=== PATIENT | female | born 1990 | race Caucasian/White ===

== ENCOUNTER 2018-03-14 01:26 | Emergency (ER) | payer MEDICAID ==
[~2018-03-14] VITALS: Ht 160 cm; Wt 129.3 kg
[2018-03-14 02:05] LABS: Basophils # (auto) 0.1 uL; Basophils % (auto) 0.7 % (0.0-2.0); Eosinophils # (auto) 0.1 uL; Eosinophils % (auto) 0.6 % (0.0-7.0); Hematocrit 48.3 % (36.0-46.0); Hemoglobin 15.9 g/dL (12.2-16.2); Lymphocytes # (auto) 1.6 uL; Lymphocytes % (auto) 16.6 % (10.0-50.0); Mean Corpuscular Hemoglobin 30.2 pg (28.0-32.0); Mean Corpuscular Volume 91.5 fL (80.0-100.0); Monocytes # (auto) 0.9 uL; Monocytes % (auto) 9.3 % (0.0-12.0); Neutrophils # (auto) 7.2 uL; Neutrophils % (auto) 72.8 % (37.0-80.0); Nucleated Red Blood Cells % 0.1 %; Platelet Count (auto) 167 10^3/uL (140-450); Red Blood Cells 5.28 10^6/uL (4.0-5.20); Red Cell Distribution Width 16.5 % (11.8-14.3); White Blood Cell 9.8 10^3/uL (4.4-10.8)
[2018-03-14 02:22] LABS: INR 1.05 (0.9-1.15); Partial Thromboplastin Time 28.7 sec (22.64-33.71); Prothrombin Time 11.4 sec (9.37-12.3)
[2018-03-14 02:25] LABS: Alanine Aminotransferase 37 U/L (13-56); Albumin 3.8 g/dL (3.4-5.0); Amylase 27 U/L (25-115); Anion Gap 15 (5-15); Aspartate Aminotransferase 22 U/L (15-37); BUN/Creatinine Ratio 9.5; Blood Urea Nitrogen 10 mg/dL (7-18); Calcium 9.2 mg/dL (8.5-10.1); Carbon Dioxide 16 mmol/L (21-32); Chloride 108 mmol/L (98-107); GFR African American 80 mL/min; GFR Non-African American 66 mL/min; Glucose 87 mg/dL (74-106); Lipase 60 U/L (73-393); Sodium 139 mmol/L (136-145)
[2018-03-14 02:30] LABS: Alkaline Phosphatase 99 U/L (45-117); Bilirubin, Total 1.2 mg/dL (0.2-1.0); Total Protein 7.3 g/dL (6.4-8.2)
[2018-03-14] MEDS ORDERED: NALBUPHINE HCL 10 MG/1ml INJECTION IV ONE (04:45)
[2018-03-14] MEDS ORDERED: KETOROLAC TROMETH 30 MG/ML 1ML VIAL IV ONE (04:45)
[2018-03-14] MEDS ORDERED: ONDANSETRON HCL 4 MG/2 ML VIAL IV ONE (04:45)
[2018-03-14] MEDS ORDERED: SODIUM CHLORIDE 0.9% 1,000 ML IV ONE (04:45)
[2018-03-14 05:26] LABS: Urine Bacteria NONE SEEN /hpf (None Seen); Urine Blood Negative /uL (Negative); Urine Mucus FEW (None Seen); Urine Specific Gravity 1.033 (1.001-1.035); Urine WBC 4 /hpf (0 - 5)
[2018-03-14 05:31] VITALS: BP 115/104
== END 2018-03-14 06:44 | disposition home or self-care (01) ==
LOC: EDBD 01:26 → ER 01:26
DX: N20.1 Calculus of ureter (principal); E86.0 Dehydration
CPT/HCPCS: 36415; 74176; 80053; 81001; 81025; 82150; 83690; 84484; 85025; 85610; 85730; 96361; 96374; 96375; 99285; J1885; J2300; J2405

== ENCOUNTER 2024-10-04 11:05 | Inpatient (IN) | payer BC, MEDICAID, OTHER ==
[~2024-10-04] VITALS: Ht 160 cm; Wt 140.2 kg
[2024-10-04 11:47] LABS: Basophils # (auto) 0 10 ^3/uL (0-0.2); Basophils % (auto) 0.4 % (0.0-2.0); Eosinophils # (auto) 0.1 10 ^3/uL (0-0.8); Monocytes # (auto) 0.7 10 ^3/uL (0-1.3); Monocytes % (auto) 7.3 % (0.0-12.0); Red Cell Distribution Width 14.7 % (11.8-14.3); White Blood Cell 10.1 10^3/uL (4.4-10.8)
[2024-10-04 11:48] LABS: Hemoglobin 12.8 g/dL (12.2-16.2); Lymphocytes # (auto) 2.4 10 ^3/uL (0.4-5.4); Lymphocytes % (auto) 23.4 % (10.0-50.0); Mean Corpuscular Hemoglobin 26.2 pg (28.0-32.0); Mean Corpuscular Hgb Conc. 32.8 g/dL (32.0-36.0); Mean Corpuscular Volume 79.6 fL (80.0-100.0); Neutrophils # (auto) 6.8 10 ^3/uL (1.6-8.6); Neutrophils % (auto) 67.9 % (37.0-80.0); Platelet Count (auto) 282 10^3/uL (140-450)
[2024-10-04 11:52] LABS: Potassium 4.6 mmol/L (3.5-5.1); Sodium 143 mmol/L (136-145)
[2024-10-04 11:53] LABS: Anion Gap 7 (5-15); Calcium 9.7 mg/dL (8.7-10.4); Carbon Dioxide 25 mmol/L (20-31)
[2024-10-04 11:58] LABS: BUN/Creatinine Ratio 10.1 (10.0-20.0); Blood Urea Nitrogen 11 mg/dL (9-23); Glucose 103 mg/dL (74-106)
[2024-10-04 11:59] LABS: Chloride 111 mmol/L (98-107)
--- NOTE | 2024-10-04 12:04 | ED.PDOC ---
HPI Comments A 33 year old female presents to the ED with a chief complaint of chest pain onset 1 week ago. Patient began experiencing chest pain describes it as a tightness sensation about 1 week ago, noticed it worsened last night. She is also experiencing shortness of breath that causes cough, LT upper back pain, dizziness. She has a past medical history of kidney stones and gallstones and denies nausea, vomiting, abdominal pain, headache. No other symptoms or modifying factors present at this time. Chief Complaint: Chest Pain Time Seen by MD: 11:18 Primary Care Provider: AVINASH Antonio Notes: Medications, Allergies Allergies: Coded Allergies: NO KNOWN ALLERGIES (Unverified , 03/14/18) Information Source: Patient Mode of Arrival: Ambulatory Severity: Moderate Timing: Weeks Duration: Since onset Prehospital treatment: None Location: Chest (L) Radiation: Back Quality: Tightness Cardiac Risk Factors: Family History PE Risk Factors: None History of: None Associated Signs and Symptoms: SOB, Back Pain Past Medical History PAST MEDICAL HISTORY: Gallstones, Kidney Stones Past Medical History (Other): Morbid obesity Surgical History: Tubal Ligation Surgical History (Other): gastric bypass [employer] History: Ectopic Family History Family History: No family hx of HTN, Family hx of heart mary Family History (Other): Father in his early 50s from [place] Social History Smoker: Cigarettes, Other Alcohol: Denies ETOH Use Drugs: Denies Drug Use Lives In: Home Constitutional: denies: chills, diaphoresis, fatigue, fever, malaise, sweats, weakness, others EENTM: denies: blurred vision, double vision, ear bleeding, ear discharge, ear drainage, ear pain, ear ringing, eye pain, eye redness, hearing loss, mouth pain, mouth swelling, nasal discharge, nose bleeding, nose congestion, nose pain, photophobia, tearing, throat pain, throat swelling, voice changes, others Respiratory: reports: cough, shortness of breath; denies: hemoptysis, orthopnea, SOB at rest, SOB with excertion, stridor, wheezing, others Cardiovascular: reports: chest pain (tightness); denies: dizzy spells, diaphoresis, Dyspnea on exertion, edema, irregular heart beat, left arm pain, lightheadedness, palpitations, PND, syncope, others Gastrointestinal: denies: abdomen distended, abdominal pain, blood streaked bowels, constipated, diarrhea, dysphagia, difficulty swallowing, hematemesis, melena, nausea, poor appetite, poor fluid intake, rectal bleeding, rectal pain, vomiting, others Genitourinary: denies: abnormal vagina bleeding, burning, dyspareunia, dysuria, flank pain, frequency, hematuria, incontinence, pain, , vagina discharge, urgency, others Neurological: reports: dizziness; denies: fainting, headache, left sided numbness, left sided weakness, numbness, paresthesia, pre-existing deficit, right sided numbness, right sided weakness, seizure, speech problems, tingling, tremors, weakness, others Musculoskeletal: reports: back pain; denies: gout, joint pain, joint swelling, muscle pain, muscle stiffness, neck pain, others Integumetry: denies: bruises, change in color, change in hair/nails, dryness, laceration, lesions, lumps, rash, wounds, others Allergic/Immunocompromised: denies: Difficulty Healing, Frequent Infections, Hives, Itching, others Hematologic/Lymphatic: denies: anemia, blood clots, easy bleeding, easy bruising, swollen glands, others Endocrine: denies: excessive hunger, excessive sweating, excessive thirst, excessive urination, flushing, intolerance to cold, intolerance to heat, unexplained weight gain, unexplained weight loss, others Psychiatric: denies: anxiety, bipolar disorder, depression, hopeless, panic disorder, schizophrenia, sleepless, suicidal, others All Other Systems: Reviewed and Negative Physical Exam General Appearance: No Apparent Distress, Obese HEENT: Other (Pupils symmetric, moist mucous membranes, no facial asymmetry) Neck: Full Range of Motion, Normal Inspection Respiratory: Decreased Breath Sounds, No Accessory Muscle Use, No Respiratory Distress Cardiovascular: No Edema, No JVD, Regular Rate/Rhythm Breast Exam: Deferred Gastrointestinal: Non Tender, Soft Genitalia: Deferred Pelvic: Deferred Rectal: Deferred Extremities: Normal inspection, Normal range of motion, Non-tender, No pedal edema Neurologic: Alert (Oriented x4), Normal Affect, Normal Mood, Other (Ambulatory without difficulty. No gross focal deficit.) Cerebellar Function: NOT DONE Reflexes: NOT DONE Skin: Dry, Normal Color, Rash Lymphatic: NOT DONE EKG EKG : Comments Sinus rhythm, rate 84, normal ME and QRS intervals, QTC 457, normal axis, normal QRS, nonspecific T changes. Was a procedure done? Was a procedure done?: No CP Differential Dx Differential Diagnosis: Angina, Anxiety / Panic Attack, Heart Failure, [place], Pulmonary Embolus Differential Diagnosis: CHF Differential Diagnosis: Chest Wall Pain, Esophageal reflux/spasm, Gastritis, Pericarditis, Pneumonia X-Ray, Labs, Meds, VS Vital Signs Date Time Temp Pulse Resp B/P (MAP) Pulse Ox O2 Delivery O2 Flow Rate FiO2 10/04/24 12:52 136/59 10/04/24 12:40 64 12 98 Room Air* 0 21 10/04/24 12:36 98.5 64 11 136/59 (84) 98 98.5 10/04/24 11:14 98.5 72 14 132/69 (90) 99 10/04/24 11:14 84 Lab Test 10/04/24 13:32 10/04/24 11:20 Range/Units Troponin I High Sensitivity < 3 L < 3 L </=34 ng/L White Blood Count 10.1 4.4-10.8 10^3/uL Red Blood Count 4.90 4.0-5.20 10^6/uL Hemoglobin 12.8 12.2-16.2 g/dL Hematocrit 39.0 36.0-46.0 % Mean Corpuscular Volume 79.6 L 80.0-100.0 fL Mean Corpuscular Hemoglobin 26.2 L 28.0-32.0 pg Mean Corpuscular Hemoglobin Concent 32.8 32.0-36.0 g/dL Red Cell Distribution Width 14.7 H 11.8-14.3 % Platelet Count 282 140-450 10^3/uL Mean Platelet Volume 8.7 6.9-10.8 fL Neutrophils (%) (Auto) 67.9 37.0-80.0 % Lymphocytes (%) (Auto) 23.4 10.0-50.0 % Monocytes (%) (Auto) 7.3 0.0-12.0 % Eosinophils (%) (Auto) 1.0 0.0-7.0 % Basophils (%) (Auto) 0.4 0.0-2.0 % Neutrophils # (Auto) 6.8 1.6-8.6 10 ^3/uL Lymphocytes # (Auto) 2.4 0.4-5.4 10 ^3/uL Monocytes # (Auto) 0.7 0-1.3 10 ^3/uL Eosinophils # (Auto) 0.1 0-0.8 10 ^3/uL Basophils # (Auto) 0 0-0.2 10 ^3/uL Nucleated Red Blood Cells 0.0 % Sodium Level 143 136-145 mmol/L Potassium Level 4.6 3.5-5.1 mmol/L Chloride Level 111 H 98-107 mmol/L Carbon Dioxide Level 25 20-31 mmol/L Anion Gap 7 5-15 Blood Urea Nitrogen 11 9-23 mg/dL Creatinine 1.09 H 0.550-1.02 mg/dL Glomerular Filtration Rate Calc 68 >90 mL/min BUN/Creatinine Ratio 10.1 10.0-20.0 Serum Glucose 103 74-106 mg/dL Calcium Level 9.7 8.7-10.4 mg/dL Magnesium Level 2.2 1.6-2.6 mg/dL B-Type Natriuretic Peptide 409.66 0-100 pg/mL Beta HCG, Quantitative 1.5 1.5-4.2 mIU/mL Current Medications Medications (Trade) Dose Ordered Sig/Iain Route Start Time Stop Time Status Last Admin Aspirin 325 mg ONCE ONCE PO 10/04/24 11:30 10/04/24 11:32 DC 10/04/24 12:52 Nitroglycerin (Nitro-Bid) 1 pkg ONCE ONCE TD 10/04/24 11:30 10/04/24 11:32 DC 10/04/24 12:52 Magnesium Sulfate/ Dextrose 100 ml @ 100 mls/hr Q1H IV 10/04/24 12:45 10/04/24 14:44 DC 10/04/24 14:50 PROCEDURE(s): CXRP - CHEST PORTABLE REASON: cp ORDER NUMBER(s): [id number], ACCESSION NUMBER(s): [id number] CHEST RADIOGRAPH Indication: cp Technique: Single frontal view of the chest was obtained COMPARISON: None FINDINGS: Lines and Tubes: None Lungs: Clear Pleura: No effusion. No pneumothorax. Cardiomediastinal contours: Unremarkable Bones: Unremarkable IMPRESSION: 1. No acute disease. X-Ray, Labs, Meds, VS Comment 33-year-old female with history of no report morbid obesity, tobacco use, and family history of [place] complaining of chest pain Vitals unremarkable Exam unremarkable Rhythm strip independently interpreted by me: Sinus rhythm, rate 84, no ectopy. Chest x-ray acute disease CBC unremarkable, basic metabolic panel remarkable for creatinine 1.09, hCG negative, BNP 409.66, troponin negative Following was ordered for the patient: Aspirin 325 mg p.o., Nitro-Bid 1/2 inch to chest wall During the patient stay, she was noted to be bradycardic down to the 30s, occasionally showing runs of 3 or 4 PVCs Patient received magnesium rider 2 g IV On re-evaluation, patient was resting comfortably with stable vitals. Plan is to admit the patient for Cardiology evaluation. Time of 1ST Reevaluation: 11:48 Reevaluation 1ST: Unchanged Patient Education/Counseling: Diagnosis, Treatment, Prognosis Family Education/Counseling: No Family Present Additional Information HI Data VOL/Complexity Ordered tests: LAB, XY, EKG, PHA reviewed results: CBC, PTPTT, UA, TROP, TROP, TROP, BMP, BETA HCG, BNP, MAG Interpreted results: XY, EKG Discuss tx/ results: patient, medical personnel Departure 1 Departure Time of Disposition: 12:50 Impression: Primary Impression: Acute chest pain Additional Impressions: Symptomatic bradycardia Arrhythmia, ventricular Disposition: ADMITTED INPATIENT Admit to: [facility] Condition: Guarded Critical Care Note Critical Care Time?: Yes (45 min-critical care time only) Critical care comment: Critical care time including multiple bedside re-evaluations, review of lab and imaging studies, and discussion of the case with the admitting provider. Patient is high risk for hemodynamic decompensation. Stability Stability form required: No Heart Score Heart Score: Heart Score Response (Comments) Value History Highly Suspicious 2 EKG Repolarization Disturb 1 Age <45 0 Risk Factors >3 or Hx ASHD 2 Troponin Normal limit 0 Total 5 I personally scribed for CHASE CASTRO MD ([email or web address]) on 10/04/24 at 12:04. Electronically submitted by Corazon Foster ([email or web address]). I personally scribed for CHASE CASTRO MD ([email or web address]) on 10/04/24 at 12:35. Electronically submitted by Corazon Foster ([email or web address]). CHASE CASTRO MD Oct 04, 2024 12:04
--- NOTE | 2024-10-04 12:12 | DVH ---
CHEST RADIOGRAPH Indication: cp Technique: Single frontal view of the chest was obtained COMPARISON: None FINDINGS: Lines and Tubes: None Lungs: Clear Pleura: No effusion. No pneumothorax. Cardiomediastinal contours: Unremarkable Bones: Unremarkable IMPRESSION: 1. No acute disease.
[2024-10-04 12:40] VITALS: PULSE 64; RESP 12; O2SAT 98
[2024-10-04] MEDS: NITROGLYCERIN 2% OINT 1GM PKG TD ONE (12:52)
[2024-10-04] MEDS: ASPirin 325 MG TAB PO ONE (12:52)
[2024-10-04] MEDS: MAGNESIUM SULFATE 1GM/100ML 100 ML IV SCH (13:01)
--- NOTE | 2024-10-04 13:44 | DVHHP2 ---
History of Present Illness Reason for Visit: shortness of breath History of Present Illness 33-year-old morbidly obese patient comes to the ED with complaints of chest pain patient has a BMI greater than 55 stating that the pain in her chest was worse for over a week and last night was the worst experience that she has had ass ociated with cough suspected back pain patient only has a past medical history of gallstones and kidney stones but denies having any fevers or chills or any other symptoms other than severe shortness of breath and chest pain patient was recommended for admission further evaluation Cardiovascular: CAD, HTN Review of Systems Constitutional: Yes: Weakness; No: Fever, Chills, Sweats, Malaise, Other Eyes: No: Pain, Vision change, Conjunctivae inflammation, Eyelid inflammation, Other, Redness ENT: No: Ear pain, Ear discharge, Nose pain, Nose discharge, Nose congestion, Mouth pain, Mouth swelling, Throat pain, Throat swelling, Other Respiratory: Cough, Shortness of breath; No: Dry, SOB with excertion, Wheezing, Hemoptysis, Pleuritic Pain, Sputum, Wheezing, Other Cardiovascular: Chest Pain, Palpitations; No: Orthopnea, Paroxysmal Noc. Dyspnea, Edema, Lt Headedness, Other Gastrointestinal: No: Nausea, Vomiting, Abdominal Pain, Diarrhea, Constipation, Melena, Hematochezia, Other Genitourinary: No Dysuria, No Frequency, No Incontinence, No Hematuria, No Retention, No Other Musculoskeletal: No: other, neck pain, shoulder pain, arm pain, back pain, hand pain, leg pain, foot pain Skin: No: Rash, Lesions, Jaundice, Bruising, Other Neurological: No: Weakness, Numbness, Incoordination, Change in speech, Confusion, Seizures, Other Allergies: Coded Allergies: NO KNOWN ALLERGIES (Unverified , 03/14/18) Medications Current Medications Medications Dose Ordered Sig/Iain Route Start Time Stop Time Status Last Admin Dose Admin Magnesium Sulfate/ Dextrose 100 ml @ 100 mls/hr Q1H IV 10/04/24 12:45 10/04/24 14:44 10/04/24 13:01 100 MLS/HR Exam Vital Signs Vital Signs Date Time Temp Pulse Resp B/P (MAP) Pulse Ox O2 Delivery O2 Flow Rate FiO2 10/04/24 12:52 136/59 10/04/24 11:14 98.5 72 14 99 General Appearance: Alert, Oriented X3, Cooperative HEENT: Atraumatic, PERRLA, EOMI Respiratory: Clear to auscultation, Normal air movement Cardiovascular: Regular rate, Normal S1, Normal S2 Abdominal: Normal bowel sounds, Soft, No tenderness Extremities: No clubbing, No cyanosis, No edema Skin: No rashes, No breakdown, No significant lesion Neuro: Normal gait, Normal speech Psych/Mental Status: Mood NL Labs/Xrays Labs Test 10/04/24 11:20 Range/Units White Blood Count 10.1 4.4-10.8 10^3/uL Red Blood Count 4.90 4.0-5.20 10^6/uL Hemoglobin 12.8 12.2-16.2 g/dL Hematocrit 39.0 36.0-46.0 % Mean Corpuscular Volume 79.6 L 80.0-100.0 fL Mean Corpuscular Hemoglobin 26.2 L 28.0-32.0 pg Mean Corpuscular Hemoglobin Concent 32.8 32.0-36.0 g/dL Red Cell Distribution Width 14.7 H 11.8-14.3 % Platelet Count 282 140-450 10^3/uL Mean Platelet Volume 8.7 6.9-10.8 fL Neutrophils (%) (Auto) 67.9 37.0-80.0 % Lymphocytes (%) (Auto) 23.4 10.0-50.0 % Monocytes (%) (Auto) 7.3 0.0-12.0 % Eosinophils (%) (Auto) 1.0 0.0-7.0 % Basophils (%) (Auto) 0.4 0.0-2.0 % Neutrophils # (Auto) 6.8 1.6-8.6 10 ^3/uL Lymphocytes # (Auto) 2.4 0.4-5.4 10 ^3/uL Monocytes # (Auto) 0.7 0-1.3 10 ^3/uL Eosinophils # (Auto) 0.1 0-0.8 10 ^3/uL Basophils # (Auto) 0 0-0.2 10 ^3/uL Nucleated Red Blood Cells 0.0 % Sodium Level 143 136-145 mmol/L Potassium Level 4.6 3.5-5.1 mmol/L Chloride Level 111 H 98-107 mmol/L Carbon Dioxide Level 25 20-31 mmol/L Anion Gap 7 5-15 Blood Urea Nitrogen 11 9-23 mg/dL Creatinine 1.09 H 0.550-1.02 mg/dL Glomerular Filtration Rate Calc 68 >90 mL/min BUN/Creatinine Ratio 10.1 10.0-20.0 Serum Glucose 103 74-106 mg/dL Calcium Level 9.7 8.7-10.4 mg/dL Magnesium Level 2.2 1.6-2.6 mg/dL Troponin I High Sensitivity < 3 L </=34 ng/L B-Type Natriuretic Peptide 409.66 0-100 pg/mL Beta HCG, Quantitative 1.5 1.5-4.2 mIU/mL Assessment/Plan Assessment/Plan Admit to telemetry Acute chest pain Rule out ACS Intermittent symptomatic bradycardia Labs pending Evaluation from Cardiology Chest pain protocol Patient will more than likely need an echo evaluation for an elevated BNP with no stated history of heart failure P.r.n. medications for breathing treatments Plan discussed with: Patient My Orders Orders - BEREKET CLAUDIO MD Procedure Category Date Status Time Admit ADMIT 10/04/24 Transmitted 13:37 Code Status CODE 10/04/24 Transmitted 13:37 Cardiac DIET 10/04/24 Transmitted Diet-2gna,Lofat,Lochol Dinner Aspirin Tablet PHA 10/05/24 Transmitted 10:00 Lipitor 80mg Hs PHA 10/04/24 Transmitted Hi-Intensity 22:00 Metoprolol Tartrate PHA 10/04/24 Transmitted Tablet (Lopressor Ta 22:00 Lisinopril Tablet PHA 10/05/24 Transmitted (Zestril Tablet) 10:00 Acetaminophen Tablet PHA 10/04/24 Transmitted (Tylenol Tablet) 13:45 Zolpidem Tartrate PHA 10/04/24 Transmitted (Ambien) 13:45 Lorazepam Tablet PHA 10/04/24 Transmitted (Ativan Tablet) 13:45 Docusate Sodium PHA 10/05/24 Transmitted Capsule (Colace 10:00 Complete Blood Count LAB 10/05/24 Verified 04:00 Basic Metabolic Panel LAB 10/05/24 Verified 04:00 Urine Microscopic LAB 10/04/24 Transmitted 13:37 Echo 2d Mode Cardiac US 10/04/24 Transmitted DOP 13:37 Ondansetron Hcl PHA 10/04/24 Transmitted (Zofran) 13:45 Electrocardigram EKG 10/04/24 Transmitted 13:37 Alum & Mag PHA 10/04/24 Transmitted Hydrox-Simethicone 13:45 Troponin-I Hs LAB 10/04/24 Transmitted 13:37 Cardiac ROSALES 10/04/24 Transmitted Rehabilitation - Outpa Nitroglycerin PHA 10/04/24 Transmitted Sublingual (Ntrostat 13:45 Morphine Sulfate PHA 10/04/24 Transmitted Injection 13:45 Stat Ekg For Chest [facility] 10/04/24 Transmitted Pain 13:37 Notify Md Of Changes [facility] 10/04/24 Transmitted From Base 13:37 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
[2024-10-04] MEDS ORDERED: ZOLPIDEM TARTRATE 5 MG TAB PO PRN (13:45)
[2024-10-04] MEDS ORDERED: MORPHINE SULFATE INJ 2 MG/ml SYRG IV PRN (13:45)
[2024-10-04] MEDS ORDERED: NITROGLYCERIN 0.4 MG SL TAB SL PRN (13:45)
[2024-10-04] MEDS ORDERED: ONDANSETRON HCL 4 MG/2 ML VIAL IV PRN (13:45)
[2024-10-04] MEDS ORDERED: ACETAMINOPHEN 325 MG TAB PO PRN (13:45)
[2024-10-04] MEDS ORDERED: LORazepam 0.5 MG TAB PO PRN (13:45)
[2024-10-04] MEDS ORDERED: MAALOX PLUS or MAALOX 30 ML PO PRN (13:45)
--- NOTE | 2024-10-04 14:44 | DVHSR ---
APPROVED REPORT EXAM: LIMITED Two-dimensional and M-mode echocardiogram with Doppler and color Doppler. Blood Pressure: 136/59 mmHg INDICATION Chest Pain RISK FACTORS Height: 5'3, Weight: 315 DIMENSIONS LVDd4.3 (3.8-5.7cm)LA (2D) (1.9-4.0cm)Aortic Root3.2 (2.0-3.7cm) LVDs3.2 (2.5-4.0cm)LA (MM) (1.9-4.0cm)Aortic Cusp Exc1.3 (1.5-2.0cm) EF (%) 52.0 (55-70%)Rt. Atrium (1.9-4.0cm)Asc. Aorta3.0 cm IVSd0.8 (0.7-1.1cm)RV (D) (1.8-2.4cm) PWd0.8 (0.7-1.1cm) Mitral Valve MitralMitral Stenosis E wave0.87m/sMV Mean GR.mmHg A wave0.53m/sMV Peak GR.mmHg E/A ratio1.62D MVAcm2 DECEL [id number] 1/2 Timems Aortic Valve Aortic ValveAortic Stenosis LVOT Diameter1.8 (1.8-2.4cm)Doppler AVAcm2 Pulmonic Valve V20.94m/s Other Information Quality : LimitedRhythm : Technically limited study due to body habitus.patient position. Conclusion Lower normal limit left ventricular systolic function estimated ejection fraction 50%. Normal diasto lic function. Normal right ventricular size and dimension. Normal right ventricular systolic function. Normal biatrial size and dimension. Normal aortic valve structure and function. Normal mitral valve structure and function. Normal tricuspid valve structure and function. The pulmonary valve is grossly normal. No pericardial effusion.
[2024-10-04 19:50] VITALS: O2SAT 98
[2024-10-04] MEDS: ATORVASTATIN 20 MG TAB PO SCH (23:21)
[2024-10-04] MEDS: METOPROLOL TARTRATE 25 MG TAB PO SCH (23:22)
[2024-10-05 06:14] LABS: Basophils # (auto) 0 10 ^3/uL (0-0.2); Eosinophils # (auto) 0.2 10 ^3/uL (0-0.8); Hemoglobin 11.7 g/dL (12.2-16.2); Mean Corpuscular Hemoglobin 25.9 pg (28.0-32.0); Neutrophils # (auto) 5.2 10 ^3/uL (1.6-8.6)
[2024-10-05 06:17] LABS: Basophils % (auto) 0.4 % (0.0-2.0); Eosinophils % (auto) 2.3 % (0.0-7.0); Hematocrit 36.1 % (36.0-46.0); Lymphocytes # (auto) 2.5 10 ^3/uL (0.4-5.4); Mean Corpuscular Hgb Conc. 32.3 g/dL (32.0-36.0); Mean Corpuscular Volume 80.1 fL (80.0-100.0); Monocytes # (auto) 0.8 10 ^3/uL (0-1.3); Monocytes % (auto) 8.8 % (0.0-12.0); Neutrophils % (auto) 59.5 % (37.0-80.0); Nucleated Red Blood Cells % 0.1 %; Platelet Count (auto) 247 10^3/uL (140-450); Red Blood Cells 4.51 10^6/uL (4.0-5.20); Red Cell Distribution Width 14.6 % (11.8-14.3); White Blood Cell 8.7 10^3/uL (4.4-10.8)
[2024-10-05 06:19] LABS: Potassium 4.5 mmol/L (3.5-5.1); Sodium 143 mmol/L (136-145)
[2024-10-05 06:20] LABS: Anion Gap 7 (5-15); Calcium 9.5 mg/dL (8.7-10.4); Carbon Dioxide 27 mmol/L (20-31)
[2024-10-05 06:25] LABS: BUN/Creatinine Ratio 14.1 (10.0-20.0); Blood Urea Nitrogen 13 mg/dL (9-23); Glucose 90 mg/dL (74-106)
[2024-10-05 06:26] LABS: Chloride 109 mmol/L (98-107)
[2024-10-05 08:00] VITALS: PULSE 59; RESP 9; O2SAT 99
[2024-10-05] MEDS: DOCUSATE SOD 100 MG CAP PO SCH (10:22)
[2024-10-05] MEDS: ASPirin 81 mg TAB PO SCH (10:22)
[2024-10-05] MEDS: LISINOPRIL 5 MG TAB PO SCH (10:23)
[2024-10-05 11:41] LABS: Urine Bacteria None Seen /hpf (None Seen)
[2024-10-05 11:51] LABS: Urine Blood 1+ /uL (Negative); Urine Clarity Clear (Clear); Urine Color Yellow (Yellow); Urine Mucus FEW (None Seen); Urine Protein, UAD TRACE (Negative); Urine Specific Gravity 1.031 (1.001-1.035); Urine Urobilinogen 3 mg/dL (Negative); Urine WBC 2 /hpf (0 - 5); Urine pH 6.5 (5.0-9.0)
--- NOTE | 2024-10-05 13:07 | DVHPN2 ---
Reviewed: Care Plan, H&P, Labs, Medications, Previous Orders, Radiology Changes from previous H/P or p: No Changes Eyes: No Pain, No Vision change, No Conjunctivae inflammation, No Eyelid inflammation, No Other, No Redness ENT: No Ear pain, No Ear discharge, No Nose pain, No Nose discharge, No Nose congestion, No Mouth pain, No Mouth swelling, No Throat pain, No Throat swelling, No Other Cardiovascular: Chest Pain, Palpitations; No Orthopnea, No Paroxysmal Noc. Dyspnea, No Edema, No Lt Headedness, No Other Respiratory: Cough; No Dry; Shortness of breath; No SOB with excertion, No Wheezing, No Hemoptysis, No Pleuritic Pain, No Sputum, No Other Gastrointestinal: No Nausea, No Vomiting, No Abdominal Pain, No Diarrhea, No Constipation, No Melena, No Hematochezia, No Other Genitourinary: No Dysuria, No Frequency, No Incontinence, No Hematuria, No Retention, No Other Musculoskeletal: No other, No neck pain, No shoulder pain, No arm pain, No back pain, No hand pain, No leg pain, No foot pain Skin: No Rash, No Lesions, No Jaundice, No Bruising, No Other Objective Vitals Vital Signs Date Time Temp Pulse Resp B/P (MAP) Pulse Ox O2 Delivery O2 Flow Rate FiO2 10/05/24 12:02 55 127/89 10/05/24 12:00 15 98 10/05/24 08:01 97.5 97.5 10/05/24 08:00 Room Air* 0 21 Medications Current Medications Medications Dose Ordered Sig/Iain Route Start Time Stop Time Status Last Admin Dose Admin Aspirin 81 mg DAILY PO 10/05/24 10:00 10/05/24 10:22 81 MG Atorvastatin Calcium 80 mg HS PO 10/04/24 22:00 10/04/24 23:21 80 MG Metoprolol Tartrate 12.5 mg Q12HR PO 10/04/24 22:00 10/05/24 10:22 12.5 MG Lisinopril 5 mg DAILY PO 10/05/24 10:00 10/05/24 10:23 5 MG Acetaminophen 650 mg Q6HP PRN PO 10/04/24 13:45 Zolpidem Tartrate 5 mg QHSP PRN PO 10/04/24 13:45 Lorazepam 0.5 mg Q6HP PRN PO 10/04/24 13:45 Docusate Sodium 100 mg DAILY PO 10/05/24 10:00 10/05/24 10:22 100 MG Ondansetron HCl 4 mg Q4HP PRN IV 10/04/24 13:45 Al Hydrox/Mg Hydrox/Simethicone 30 ml Q6HPRN PRN PO 10/04/24 13:45 Nitroglycerin 0.4 mg Q5MINP PRN SL 10/04/24 13:45 Morphine Sulfate 2 mg Q30M PRN IV 10/04/24 13:45 Laboratory Results Laboratory Tests 10/05/24 05:32 Chemistry Test 10/05/24 05:32 Calcium Level 9.5 mg/dL (8.7-10.4) Urinalysis Test 10/04/24 11:00 Urine Color Yellow (Yellow) Urine Clarity Clear (Clear) Urine pH 6.5 (5.0-9.0) Urine Specific [place] 1.031 (1.001-1.035) Urine Protein Trace (Negative) H Urine Ketones Negative (Negative) Urine Blood 1+ /uL (Negative) H Urine Nitrite Negative (Negative) Urine Bilirubin Negative (Negative) Urine Urobilinogen 3 mg/dL (Negative) H Urine Leukocyte Esterase Negative /uL (Negative) Urine RBC 2 /hpf (0 - 4) Urine WBC 2 /hpf (0 - 5) Urine Squamous Epithelial Cells Few /hpf (<5) Urine Bacteria None seen /hpf (None Seen) Urine Mucus Few (None Seen) Urine Glucose Normal mg/dL (Normal) Labs and/or images reviewed: Labs reviewed by me, Image(s) reviewed by me Assessment/Plan Assessment/Plan Chest pain troponin negative x3, chest x-ray negative, 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
[2024-10-05 15:57] LABS: Triglycerides 97 mg/dL (< 150)
[2024-10-05 15:58] LABS: LDL Cholesterol 93 mg/dL (< 100)
[2024-10-05 15:59] LABS: Cholesterol 155 mg/dL (< 200); HDL Cholesterol 50 mg/dL (40-59)
[2024-10-05 18:03] VITALS: BP 134/77; PULSE 61; RESP 20; TEMP 98.1; O2SAT 97
[2024-10-05 18:05] VITALS: BP 134/77; PULSE 61; TEMP 98.1; O2SAT 97
[2024-10-05 20:00] VITALS: PULSE 63
[2024-10-06 01:00] VITALS: BP 122/70; PULSE 59; RESP 16; TEMP 97.2; O2SAT 96
[2024-10-06 05:00] VITALS: BP 113/72; PULSE 56; RESP 18; TEMP 97; O2SAT 98
--- NOTE | 2024-10-06 06:45 | ECG ---
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
[2024-10-06 08:00] VITALS: PULSE 60
[2024-10-06 09:00] VITALS: BP 130/82; PULSE 67; RESP 16; TEMP 98; O2SAT 98
--- NOTE | 2024-10-06 09:14 | DVHPN2 ---
Reviewed: Care Plan, H&P, Labs, Medications, Previous Orders, Radiology Changes from previous H/P or p: No Changes Eyes: No Pain, No Vision change, No Conjunctivae inflammation, No Eyelid inflammation, No Other, No Redness ENT: No Ear pain, No Ear discharge, No Nose pain, No Nose discharge, No Nose congestion, No Mouth pain, No Mouth swelling, No Throat pain, No Throat swelling, No Other Cardiovascular: Chest Pain, Palpitations; No Orthopnea, No Paroxysmal Noc. Dyspnea, No Edema, No Lt Headedness, No Other Respiratory: Cough; No Dry; Shortness of breath; No SOB with excertion, No Wheezing, No Hemoptysis, No Pleuritic Pain, No Sputum, No Other Gastrointestinal: No Nausea, No Vomiting, No Abdominal Pain, No Diarrhea, No Constipation, No Melena, No Hematochezia, No Other Genitourinary: No Dysuria, No Frequency, No Incontinence, No Hematuria, No Retention, No Other Musculoskeletal: No other, No neck pain, No shoulder pain, No arm pain, No back pain, No hand pain, No leg pain, No foot pain Skin: No Rash, No Lesions, No Jaundice, No Bruising, No Other Objective Vitals Vital Signs Date Time Temp Pulse Resp B/P (MAP) Pulse Ox O2 Delivery O2 Flow Rate FiO2 10/06/24 05:00 97.0 56 18 113/72 (86) 98 97.0 10/05/24 20:00 Room Air* 0 21 Intake/Output Intake and Output 10/06/24 07:00 Intake Total 540 ml Balance 540 ml Intake Oral 540 ml # Voids 2 Medications Current Medications Medications Dose Ordered Sig/Iain Route Start Time Stop Time Status Last Admin Dose Admin Aspirin 81 mg DAILY PO 10/05/24 10:00 10/05/24 10:22 81 MG Atorvastatin Calcium 80 mg HS PO 10/04/24 22:00 10/05/24 22:59 80 MG Metoprolol Tartrate 12.5 mg Q12HR PO 10/04/24 22:00 10/05/24 23:01 12.5 MG Lisinopril 5 mg DAILY PO 10/05/24 10:00 10/05/24 10:23 5 MG Acetaminophen 650 mg Q6HP PRN PO 10/04/24 13:45 Zolpidem Tartrate 5 mg QHSP PRN PO 10/04/24 13:45 Lorazepam 0.5 mg Q6HP PRN PO 10/04/24 13:45 Docusate Sodium 100 mg DAILY PO 10/05/24 10:00 10/05/24 10:22 100 MG Ondansetron HCl 4 mg Q4HP PRN IV 10/04/24 13:45 Al Hydrox/Mg Hydrox/Simethicone 30 ml Q6HPRN PRN PO 10/04/24 13:45 Nitroglycerin 0.4 mg Q5MINP PRN SL 10/04/24 13:45 Morphine Sulfate 2 mg Q30M PRN IV 10/04/24 13:45 Laboratory Results Laboratory Tests 10/05/24 05:32 Urinalysis Test 10/04/24 11:00 Urine Color Yellow (Yellow) Urine Clarity Clear (Clear) Urine pH 6.5 (5.0-9.0) Urine Specific [place] 1.031 (1.001-1.035) Urine Protein Trace (Negative) H Urine Ketones Negative (Negative) Urine Blood 1+ /uL (Negative) H Urine Nitrite Negative (Negative) Urine Bilirubin Negative (Negative) Urine Urobilinogen 3 mg/dL (Negative) H Urine Leukocyte Esterase Negative /uL (Negative) Urine RBC 2 /hpf (0 - 4) Urine WBC 2 /hpf (0 - 5) Urine Squamous Epithelial Cells Few /hpf (<5) Urine Bacteria None seen /hpf (None Seen) Urine Mucus Few (None Seen) Urine Glucose Normal mg/dL (Normal) Labs and/or images reviewed: Labs reviewed by me, Image(s) reviewed by me Assessment/Plan Assessment/Plan Chest pain troponin negative x3, chest x-ray negative, 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
[2024-10-06 12:54] VITALS: BP 148/71; PULSE 67; RESP 17; TEMP 98; O2SAT 96
[2024-10-06 14:53] LABS: Amphetamine Screen, Urine Neg (NEGATIVE); Barbiturate Scree,Urine Neg (NEGATIVE); Benzodiazephine Screen, Urine Neg (NEGATIVE); Cocaine Screen, Urine Neg (NEGATIVE); Opiate Scree,Urine Neg (NEGATIVE)
[2024-10-06 14:54] LABS: Cannabinoid Screen, Urine Neg (NEGATIVE); Phencyclidine Screen, Urine Neg (NEGATIVE)
--- NOTE | 2024-10-07 08:30 | DVHDS2 ---
Discharge Summary Date of Admission Oct 04, 2024 at 13:37 Date of Discharge: Oct 06, 2024 Admitting Diagnosis Chest pain Wounds: None Labs/Diagnostic Data: Laboratory Results Test 10/06/24 14:32 10/05/24 05:32 10/04/24 14:43 10/04/24 11:20 Urine Opiates Screen Neg (NEGATIVE) Urine Fentanyl Screen Neg (NEGATIVE) Urine Barbiturates Screen Neg (NEGATIVE) Urine Phencyclidine Screen Neg (NEGATIVE) Urine Amphetamines Screen Neg (NEGATIVE) Urine Benzodiazepines Screen Neg (NEGATIVE) Urine Cocaine Screen Neg (NEGATIVE) Urine Cannabinoids Screen Neg (NEGATIVE) White Blood Count 8.7 10^3/uL (4.4-10.8) Red Blood Count 4.51 10^6/uL (4.0-5.20) Hemoglobin 11.7 g/dL (12.2-16.2) Hematocrit 36.1 % (36.0-46.0) Mean Corpuscular Volume 80.1 fL (80.0-100.0) Mean Corpuscular Hemoglobin 25.9 pg (28.0-32.0) Mean Corpuscular Hemoglobin Concent 32.3 g/dL (32.0-36.0) Red Cell Distribution Width 14.6 % (11.8-14.3) Platelet Count 247 10^3/uL (140-450) Mean Platelet Volume 8.8 fL (6.9-10.8) Neutrophils (%) (Auto) 59.5 % (37.0-80.0) Lymphocytes (%) (Auto) 29.0 % (10.0-50.0) Monocytes (%) (Auto) 8.8 % (0.0-12.0) Eosinophils (%) (Auto) 2.3 % (0.0-7.0) Basophils (%) (Auto) 0.4 % (0.0-2.0) Neutrophils # (Auto) 5.2 10 ^3/uL (1.6-8.6) Lymphocytes # (Auto) 2.5 10 ^3/uL (0.4-5.4) Monocytes # (Auto) 0.8 10 ^3/uL (0-1.3) Eosinophils # (Auto) 0.2 10 ^3/uL (0-0.8) Basophils # (Auto) 0 10 ^3/uL (0-0.2) Nucleated Red Blood Cells 0.1 % Sodium Level 143 mmol/L (136-145) Potassium Level 4.5 mmol/L (3.5-5.1) Chloride Level 109 mmol/L (98-107) Carbon Dioxide Level 27 mmol/L (20-31) Anion Gap 7 (5-15) Blood Urea Nitrogen 13 mg/dL (9-23) Creatinine 0.92 mg/dL (0.550-1.02) Glomerular Filtration Rate Calc 84 mL/min (>90) BUN/Creatinine Ratio 14.1 (10.0-20.0) Serum Glucose 90 mg/dL (74-106) Calcium Level 9.5 mg/dL (8.7-10.4) Triglycerides Level 97 mg/dL (< 150) Cholesterol Level 155 mg/dL (< 200) LDL Cholesterol 93 mg/dL (< 100) HDL Cholesterol 50 mg/dL (40-59) Troponin I High Sensitivity < 3 ng/L (</=34) Magnesium Level 2.2 mg/dL (1.6-2.6) B-Type Natriuretic Peptide 409.66 pg/mL (0-100) Beta HCG, Quantitative 1.5 mIU/mL (1.5-4.2) Test 10/04/24 11:00 Urine Color Yellow (Yellow) Urine Clarity Clear (Clear) Urine pH 6.5 (5.0-9.0) Urine Specific [place] 1.031 (1.001-1.035) Urine Protein Trace (Negative) Urine Ketones Negative (Negative) Urine Blood 1+ /uL (Negative) Urine Nitrite Negative (Negative) Urine Bilirubin Negative (Negative) Urine Urobilinogen 3 mg/dL (Negative) Urine Leukocyte Esterase Negative /uL (Negative) Urine RBC 2 /hpf (0 - 4) Urine WBC 2 /hpf (0 - 5) Urine Squamous Epithelial Cells Few /hpf (<5) Urine Bacteria None seen /hpf (None Seen) Urine Mucus Few (None Seen) Urine Glucose Normal mg/dL (Normal) Other Laboratory Tests 10/05/24 05:32 Brief Hx & Hospital Course: Discharge summary dictated after the patient left AMA 33-year-old female with a history of hypertension gallstones kidney stones family history of coronary artery disease came in complaining of chest pain troponin negative x3 chest x-ray negative placed on aspirin and Lipitor BNP was slightly high for 0 nine possible congestive heart failure echo 50 percent ejection fraction. While awaiting cardiology consultation patient decided to leave AMA and left AMA. Consequences and complications including possible explained to the patient and she verbalized understanding. 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 Lipitor Family History of coronary artery disease Hypertension lisinopril History of kidney stones History of gallstones Possible congestive heart failure BNP 409 echo 50 % ejection fraction Discharge Disposition: AMA Discharge Instruct/Medications Diet comment: Not applicable Patient left AMA Activity comment: Not applicable Patient left AMA Follow Up/Referral: Not applicable Patient left AMA Medications: Not applicable Patient left AMA 36 (Time taken for discharge summary 36 minutes) Discharge Statement: "Patient was advised to return to the ER or call 911 if any headaches, dizziness, shortness of breath, chest pain, abdominal pain, bleeding, fevers, or worsening of medical condition. Patient was counseled about treatment plan, medications, possible side effects, patientverbalized understanding. All questions were answered to the best of my ability. This discharge took greater then 30 minutes in planning, reviewing documentation, counseling the patient, and discussing with other team members." ASSESSMENT ASSESSMENT Hospital Course Improved Assessment Date of Service: Oct 06, 2024 Billing Provider: PRICILA RIVERA MD Common Visit Codes: 92459-EIE/OBS DISCH DAY >30min PRICILA RIVERA MD Oct 07, 2024 08:30
== END 2024-10-06 16:52 | disposition left against medical advice (07) | DRG 313 ==
LOC: ER 11:05 → TELE 13:37 → TELE-EAST 10-05 18:01
PROVIDERS: ADMIT Hospitalist; ATTEND Family Medicine
DX: R07.89 Other chest pain (principal); Z68.43 Body mass index [BMI] 50.0-59.9, adult; R00.1 Bradycardia, unspecified; I50.9 Heart failure, unspecified; E66.01 Morbid (severe) obesity due to excess calories; M54.9 Dorsalgia, unspecified; K80.20 Calculus of gallbladder without cholecystitis without obstruction; Z53.29 Procedure and treatment not carried out because of patient's decision for other reasons; I11.0 Hypertensive heart disease with heart failure; F17.210 Nicotine dependence, cigarettes, uncomplicated; I25.10 Atherosclerotic heart disease of native coronary artery without angina pectoris; Z87.442 Personal history of urinary calculi; Z82.49 Family history of ischemic heart disease and other diseases of the circulatory system; Z63.4 Disappearance and death of family member; Z98.84 Bariatric surgery status
CPT/HCPCS: 36415; 71045; 80048; 80061; 80307; 81001; 83735; 83880; 84484; 84702; 85025; 93005; 93306; 96365; 99291; G0378